=== PATIENT | male | born 1950 | race Two or more races ===

== ENCOUNTER 2018-01-20 12:33 | Emergency (ER) | payer OTHER, MEDICAID ==
[~2018-01-20] VITALS: Ht 175.3 cm; Wt 63.5 kg
[2018-01-20 15:52] LABS: Basophils # (auto) 0 uL; Basophils % (auto) 0.3 % (0.0-2.0); Eosinophils # (auto) 0 uL; Eosinophils % (auto) 0.3 % (0.0-7.0); Hematocrit 35.3 % (41.0-53.0); Hemoglobin 12.1 g/dL (13.5-17.5); Lymphocytes # (auto) 0.8 uL; Lymphocytes % (auto) 16.3 % (10.0-50.0); Mean Corpuscular Hemoglobin 32.5 pg (28.0-32.0); Mean Corpuscular Hgb Conc. 34.2 g/dL (32.0-36.0); Mean Corpuscular Volume 94.9 fL (80.0-100.0); Monocytes # (auto) 0.5 uL; Monocytes % (auto) 9.7 % (0.0-12.0); Neutrophils # (auto) 3.5 uL; Neutrophils % (auto) 73.4 % (37.0-80.0); Platelet Count (auto) 230 10^3/uL (140-450); Red Blood Cells 3.72 10^6/uL (4.5-5.90); Red Cell Distribution Width 12.7 % (11.8-14.3); White Blood Cell 4.8 10^3/uL (4.4-10.8)
[2018-01-20 16:04] LABS: Albumin 3.5 g/dL (3.4-5.0); Anion Gap 7 (5-15); Aspartate Aminotransferase 22 U/L (15-37); BUN/Creatinine Ratio 22.7; Blood Alcohol < 3.0 mg/dL (0-5); Blood Urea Nitrogen 15 mg/dL (7-18); Calcium 8.7 mg/dL (8.5-10.1); Carbon Dioxide 24 mmol/L (21-32); Chloride 111 mmol/L (98-107); GFR African American 154 mL/min; GFR Non-African American 128 mL/min; Glucose 90 mg/dL (74-106); Potassium 3.9 mmol/L (3.5-5.1); Salicylate 5.4 mg/dL (2.8-20.0); Sodium 142 mmol/L (136-145)
[2018-01-20 16:06] LABS: Acetaminophen < 2.0 ug/mL (10-30)
[2018-01-20 16:07] LABS: Alkaline Phosphatase 83 U/L (45-117)
[2018-01-20 16:25] LABS: Alanine Aminotransferase 7 U/L (16-61)
[2018-01-20 19:14] LABS: Alcohol, Urine < 3.0 mg/dL (0-5); Amphetamine Screen, Urine NEGATIVE (NEGATIVE); Barbiturate Scree,Urine NEGATIVE (NEGATIVE); Benzodiazephine Screen, Urine NEGATIVE (NEGATIVE); Cannabinoid Screen, Urine NEGATIVE (NEGATIVE); Cocaine Screen, Urine NEGATIVE (NEGATIVE); Opiate Scree,Urine NEGATIVE (NEGATIVE); Phencyclidine Screen, Urine NEGATIVE (NEGATIVE)
[2018-01-20 19:45] LABS: Urine Bacteria NONE SEEN /hpf (None Seen); Urine Blood Negative /uL (Negative); Urine Hyaline Cast FEW /lpf (0 - 2); Urine Mucus FEW (None Seen); Urine Specific Gravity 1.025 (1.001-1.035); Urine WBC 16 /hpf (0 - 3)
[2018-01-21] MEDS ORDERED: CARBIDOPA W LEVODOPA 25/100mg TABLET PO ONE (10:45)
[2018-01-21 11:56] VITALS: BP 120/74
[2018-01-21] MEDS ORDERED: CARBIDOPA W LEVODOPA 25/100mg TABLET PO SCH (14:00)
== END 2018-01-21 16:23 | disposition short-term general hospital (02) ==
LOC: EDBD 12:33 → ER 12:33
DX: F32.9 Major depressive disorder, single episode, unspecified (principal); R45.851 Suicidal ideations; G20 Parkinson's disease
CPT/HCPCS: 36415; 80053; 80307; 80320; 80329; 81001; 85025